=== PATIENT | female | born 1985 | race Caucasian/White ===

== ENCOUNTER 2017-01-14 18:52 | Emergency (ER) | payer OTHER ==
[~2017-01-14] VITALS: Ht 167.6 cm; Wt 82.7 kg
[~2017-01-14 18:52] MED LIST: ALPR-411 PO; BCPILLS PO; BUPR-79 PO; ESCI10TA17 PO; PANT40TA2 PO; ZOLP1TAB PO
[2017-01-14 18:53] VITALS: TEMP 36.7; Ht 167.6 cm; Wt 82.7 kg
[2017-01-14] MEDS ORDERED: HYDROCODONE/HOMATROPINE SYRUP 5MG/1.5MG 5ML UDP PO STA (19:00)
[2017-01-14] MEDS ORDERED: ONDANSETRON INJ 2 MG/ML 2 ML VIAL IV STA (19:00)
[2017-01-14] MEDS ORDERED: ALBUT/IPRATROP 3MG/0.5MG NEB 3 ML VIAL INH STA (19:00)
[2017-01-14] MEDS ORDERED: SODIUM CHLORIDE 0.9% 1000ML 1,000 ML IV STA (19:00)
[2017-01-14] MEDS ORDERED: BENZ100C84 PO (19:16)
[2017-01-14] MEDS ORDERED: PRED10TA PO (19:16)
[2017-01-14] MEDS ORDERED: ESCI1TAB10 PO (19:16)
--- NOTE | 2017-01-14 19:39 | EMERGENCY ROOM VISIT NOTE ---
History Report prepared by Negrito: Tasia Castanon Under the Supervision of: Dr. Michael Goodman M.D. First contact with patient: 18:56 Chief Complaint: SHORTNESS OF BREATH Stated Complaint: COUGH,WHEEZES, SOB History of Present Illness The patient is a 31 year old female who presents to the Emergency Room with complaints of a constant dry cough beginning 8 days ago. The patient reports having a fever of 99.5 about 5 days ago which resolved, feeling body aches, vomiting (from coughing), and fatigue. She also complains of nasal congestion, and a sore throat. She has tried using an inhaler but did not feel any relief. She denies having diarrhea or a history of pneumonia. The patient was diagnosed with a viral URI last week and was prescribed Tessalon Perles and Prednisone. She did not take her Prednisone today. Source of History: patient Onset: 8 days ago Quality: other (cough) Timing: constant Associated Symptoms: + fatigue, + sorethroat, + vomiting, No diarrhea Note: The patient also complains of body aches. Review of Systems See HPI for pertinent positives & negatives. A total of 10 systems reviewed and were otherwise negative. Past Medical & Surgical Medical Problems: (1) Acetaminophen toxicity (2) Anxiety (3) Asthma (4) Depression (5) History of intentional overdose Surgical Problems: (1) No significant past surgical history Family History Diabetes mellitus FHx: cancer FHx: heart disease Hypertension Kidney disease Kidney stones Stroke Social History Smoking Status: Current Some Day Smoker Alcohol Use: occasionally Drug Use: none Marital Status: single Housing Status: lives with significant other Occupation Status: employed Current/Historical Medications Scheduled Azithromycin (Zithromax Z-Ignacio), 0 PO UD Control Pills ( Control Pills), 1 TAB PO DAILY Bupropion (Wellbutrin Sr), 150 MG PO DAILY Escitalopram Oxalate (Lexapro), 20 MG PO DAILY Pantoprazole (Pantoprazole Sodium), 40 MG PO DAILY Prednisone (Prednisone), 0 PO UD Scheduled PRN Alprazolam (Xanax), 0.25 MG PO Q12 PRN for Anxiety Benzonatate (Tessalon Perles), 1-2 CAP PO Q4 PRN for Cough Hydrocodone W/ Homatropine (Hycodan 5/1.5MG 5 Ml), 5-10 ML PO Q4H PRN for Cough Zolpidem Tartrate (Ambien Er), 12.5 MG PO HS PRN for Insomnia Allergies Coded Allergies: No Known Allergies (Unverified , 01/14/17) Physical Exam Vital Signs Date Time Temp Pulse Resp B/P Pulse Ox O2 Delivery O2 Flow Rate FiO2 01/14/17 21:37 91 20 131/79 97 01/14/17 20:36 91 20 120/81 98 Room Air 01/14/17 19:35 85 01/14/17 19:25 Room Air 01/14/17 19:25 Room Air 01/14/17 18:53 36.7 99 20 135/73 96 Room Air Physical Exam GENERAL: Patient is in no mild distress. Anxious and occasionally tearful discussing her cough, HEENT: No acute trauma, normocephalic atraumatic, mucous membranes moist, no nasal congestion, no scleral icterus. No throat erythema or exudate. NECK: No stridor, no adenopathy, no meningismus, trachea is midline. LUNGS: Bilateral wheezing with exhalation, equal breath sounds, no crackles or respiratory distress. HEART: Without murmurs gallops or rubs, regular rate and rhythm. ABDOMEN: Soft, nontender, bowel sounds positive, no hernias, no peritonitis. EXTREMITIES: No cyanosis or edema, full range of motion of all the joints without pain or difficulty, no signs for acute trauma. NEUROLOGIC: Oriented x 3, no acute motor or sensory deficits, no focal weakness. SKIN: No rash, no jaundice, no diaphoresis. Medical Decision & Procedures ER Provider Diagnostic Interpretation: X-ray results as stated below per interpretation by me and the radiologist: CHEST 2 VIEWS ROUTINE FINDINGS: The bones soft tissues and hemidiaphragms are normal. The cardiomediastinal silhouette is normal. The lungs are clear. The pulmonary vasculature is normal. IMPRESSION: Negative chest. Electronically signed by: Mihai Gomez M.D. 01/14/2017 8:22 PM Laboratory Results 01/14/17 19:25 Red Blood Count 4.44, Mean Corpuscular Volume 85.6, Mean Corpuscular Hemoglobin 27.0, Mean Corpuscular Hemoglobin Concent 31.6, Mean Platelet Volume 8.8, Neutrophils (%) (Auto) 57.0, Lymphocytes (%) (Auto) 33.2, Monocytes (%) (Auto) 7.9, Eosinophils (%) (Auto) 1.1, Basophils (%) (Auto) 0.3, Neutrophils # (Auto) 8.33, Lymphocytes # (Auto) 4.85, Monocytes # (Auto) 1.15, Eosinophils # (Auto) 0.16, Basophils # (Auto) 0.04 01/14/17 19:25 Test 01/14/17 19:25 01/14/17 19:30 White Blood Count 14.60 K/uL (4.8-10.8) Red Blood Count 4.44 M/uL (4.2-5.4) Hemoglobin 12.0 g/dL (12.0-16.0) Hematocrit 38.0 % (37-47) Mean Corpuscular Volume 85.6 fL (80-100) Mean Corpuscular Hemoglobin 27.0 pg (25-34) Mean Corpuscular Hemoglobin Concent 31.6 g/dl (32-36) Platelet Count 427 K/uL (130-400) Mean Platelet Volume 8.8 fL (7.4-10.4) Neutrophils (%) (Auto) 57.0 % Lymphocytes (%) (Auto) 33.2 % Monocytes (%) (Auto) 7.9 % Eosinophils (%) (Auto) 1.1 % Basophils (%) (Auto) 0.3 % Neutrophils # (Auto) 8.33 K/uL (1.4-6.5) Lymphocytes # (Auto) 4.85 K/uL (1.2-3.4) Monocytes # (Auto) 1.15 K/uL (0.11-0.59) Eosinophils # (Auto) 0.16 K/uL (0-0.5) Basophils # (Auto) 0.04 K/uL (0-0.2) RDW Standard Deviation 41.6 fL (36.4-46.3) RDW Coefficient of Variation 13.3 % (11.5-14.5) Immature Granulocyte % (Auto) 0.5 % Immature Granulocyte # (Auto) 0.07 K/uL (0.00-0.02) Anion Gap 4.0 mmol/L (3-11) Est Creatinine Clear Calc Drug Dose 101.3 ml/min Estimated GFR () 102.2 Estimated GFR (Non- 88.2 BUN/Creatinine Ratio 12.3 (10-20) Calcium Level 8.3 mg/dl (8.5-10.1) Total Bilirubin 0.3 mg/dl (0.2-1) Aspartate Amino Transf (AST/SGOT) 9 U/L (15-37) Alanine Aminotransferase (ALT/SGPT) 19 U/L (12-78) Alkaline Phosphatase 70 U/L (45-117) Total Protein 8.0 gm/dl (6.4-8.2) Albumin 3.7 gm/dl (3.4-5.0) Globulin 4.3 gm/dl (2.5-4.0) Albumin/Globulin Ratio 0.9 (0.9-2) Influenza Type A Antigen Neg for Influ A (NEG) Influenza Type B Antigen Neg for Influ B (NEG) Laboratory results reviewed by me. Medications Administered Medications (Trade) Dose Ordered Sig/Levy Route Start Time Stop Time Status Last Admin Dose Admin Ondansetron HCl 4 mg 4 mg NOW STAT IV 01/14/17 19:00 01/14/17 19:05 DC 01/14/17 19:29 4 MG Sodium Chloride (Nss 1000ml) 1,000 ml @ 999 mls/hr Q1H1M STAT IV 01/14/17 19:00 01/14/17 20:00 DC 01/14/17 19:29 999 MLS/HR Albuterol/ Ipratropium (Duoneb) 3 ml NOW STAT INH 01/14/17 19:00 01/14/17 19:05 DC 01/14/17 19:28 3 ML Hydrocodone Bit/ Homatropine Methylb (Hycodan Syrup) 5 ml NOW STAT PO 01/14/17 19:00 01/14/17 19:05 DC 01/14/17 19:29 5 ML Azithromycin (Zithromax Tab) 500 mg NOW STAT PO 01/14/17 20:31 01/14/17 20:32 DC 01/14/17 20:40 500 MG Hydrocodone Bit/ Homatropine Methylb (Hycodan Elix Homepack 5/1.5MG/ 5ML) 1 homepack UD ONCE PO 01/14/17 21:00 01/14/17 21:01 DC 01/14/17 21:31 1 HOMEPACK ED Course 1858: The patient was evaluated in room B9. A complete history and physical exam was performed. 1899: Ordered Hydrocodone Bit/Homatropine Methylb 5 ml PO, Duoneb 3 ml INH, Sodium Chloride 1,000 ml @ 999 mls/hr IV, Zofran Inj 4 mg IV. 2030: Ordered Zithromax Tab 500 mg PO. 2099: Ordered Hycodan Elix Homepackl 5/1. 5MG/5ML 1 homepack PO. 2104: Reevaluated the patient. Discussed results and discharge instructions: she verbalized understanding and agreement. The patient is ready for discharge. Medical Decision The patient is a 31 year old female who presents to the ED with complaints of coughing. Differential diagnoses considered include bronchitis, pneumonia, exacerbated asthma, hemothorax, CHF, influenza, viral illness, dehydration. There is a mild leukocytosis, this could be consistent with infection or possibly her steroid use. No worrisome anemia. No significant electrolyte abnormality, kidney failure or hepatitis. Chest x-ray does not show pneumonia or mediastinal widening. There was no pneumothorax. Influenza testing is negative. Blood cultures are pending. The patient was given a DuoNeb, she received oral Zithromax, IV saline. She was given Hycodan orally. She received IV Zofran for nausea. The patient feels improved, she is coughing less. I suspect she has an acute bronchitis with an exacerbation of asthma. Given her symptoms for over one week , given the fever and the asthma history, antibiotics are indicated. I will prescribe Zithromax. Hycodan for cough, more frequent albuterol use. Rest and hydration were encouraged. If worsening, she can return. [place] Drug Monitoring Program Search Results: patient reviewed within database, no issues identified Impression Primary Impression: Acute bronchitis Additional Impression: Asthma exacerbation Scribe Attestation The scribe's documentation has been prepared under my direction and personally reviewed by me in its entirety. I confirm that the note above accurately reflects all work, treatment, procedures, and medical decision making performed by me. Departure Information Dispostion Home / Self-Care Prescriptions Azithromycin (ZITHROMAX Z-IGNACIO) 250 Mg Tab 0 PO UD, #1 PKT Prov: Michael Goodman M.D. 01/14/17 Hydrocodone W/ Homatropine (HYCODAN 5/1.5MG 5 ML) 1 Syp Syp 5-10 ML PO Q4H Y for Cough, #120 ML Prov: Michael Goodman M.D. 01/14/17 Referrals No Doctor, Assigned (PCP) Forms HOME CARE DOCUMENTATION FORM, IMPORTANT VISIT INFORMATION Patient Instructions My [facility] Additional Instructions fluids rest continue the prednisone use hycodan 1-2 tsp every 4 hours for cough zithromax daily as directed return if worsening albuterol 2-3 puffs every 4 hours Problem Qualifiers
[2017-01-14 19:58] LABS: BASO % 0.3 %; BASO ABS # 0.04 K/uL (0-0.2); COMPLETE YES; EOS % 1.1 %; IG% 0.5 %; LYMPH % 33.2 %; LYMPH ABS # 4.85 K/uL (1.2-3.4); MEAN CELL VOLUME 85.6 fL (80-100); MEAN CORPUSCULAR HGB CONC 31.6 g/dl (32-36); MEAN PLATELET VOLUME 8.8 fL (7.4-10.4); MONO % 7.9 %; PLATELET COUNT 427 K/uL (130-400); RED BLOOD COUNT 4.44 M/uL (4.2-5.4)
[2017-01-14 20:13] LABS: BUN/CREATININE RATIO 12.3 (10-20); CALCIUM 8.3 mg/dl (8.5-10.1); CREATININE 0.88 mg/dl (0.60-1.20); POTASSIUM 3.3 mmol/L (3.5-5.1)
[2017-01-14 20:15] LABS: ALB/GLOB RATIO 0.9 (0.9-2)
--- NOTE | 2017-01-14 20:24 | DIAGNOSTIC IMAGING REPORT ---
CHEST 2 VIEWS ROUTINE CLINICAL HISTORY: EVALUATE RESPIRATORY DISTRESS. DYSPNEA COMPARISON STUDY: 05/01/2013 FINDINGS: The bones soft tissues and hemidiaphragms are normal. The cardiomediastinal silhouette is normal. The lungs are clear. The pulmonary vasculature is normal. IMPRESSION: Negative chest. Electronically signed by: Mihai Gomez M.D. 01/14/2017 8:22 PM Dictated Date/Time: 01/14/2017 8:22 PM
[2017-01-14] MEDS ORDERED: AZITHROMYCIN 250 MG TAB PO STA (20:31)
[2017-01-14] MEDS ORDERED: HYCODAN 60ML BOTTLE HOMEPACK PO ONE (21:00)
[2017-01-14] MEDS ORDERED: HYDR5SYP11 PO (21:02)
[2017-01-14] MEDS ORDERED: AZITTAB PO (21:02)
[2017-01-14 21:37] VITALS: BP 131/79; PULSE 91; O2SAT 97
== END 2017-01-14 21:39 | disposition home or self-care (01) ==
LOC: C.EDB 18:53
DX: J20.9 Acute bronchitis, unspecified (principal); J45.901 Unspecified asthma with (acute) exacerbation; F41.9 Anxiety disorder, unspecified; F32.9 Major depressive disorder, single episode, unspecified; F17.200 Nicotine dependence, unspecified, uncomplicated; Z79.899 Other long term (current) drug therapy; Z83.3 Family history of diabetes mellitus; Z80.9 Family history of malignant neoplasm, unspecified; Z82.49 Family history of ischemic heart disease and other diseases of the circulatory system; Z84.1 Family history of disorders of kidney and ureter; Z82.3 Family history of stroke

== ENCOUNTER 2017-07-13 10:11 | Emergency (ER) | payer OTHER ==
[~2017-07-13] VITALS: Ht 167.6 cm; Wt 83.0 kg
[~2017-07-13 10:11] MED LIST changes: +BENZ100C84 PO; -ESCI10TA17 PO; +ESCI1TAB10 PO; +PRED10TA PO
[2017-07-13 10:14] VITALS: TEMP 36.7; Ht 167.6 cm; Wt 83.0 kg
[2017-07-13 10:51] LABS: MANUAL MICROSCOPIC REQUIRED? YES; URINE APPEARANCE CLEAR (CLEAR); URINE BILIRUBIN NEG (NEG); URINE COLOR YELLOW; URINE NITRITE NEG (NEG); URINE PH 6.5 (4.5-7.5); URINE SPECIFIC GRAVITY 1.015 (1.000-1.030); UROBILINOGEN NEG (NEG)
--- NOTE | 2017-07-13 10:53 | EMERGENCY ROOM VISIT NOTE ---
History First contact with patient: 10:19 Chief Complaint: FLANK PAIN Stated Complaint: RT FLANK PAIN, UTI SYMPTOMS History of Present Illness The patient is a 31 year old female who presents to the Emergency Room with complaints of dysuria and urinary frequency which began on Wednesday. The patient describes these as "UTI symptoms. The patient states that the pain has been waxing and waning until today. She did work over the weekend, and this morning when she laid down at approximately 8:30 AM, she began experiencing significant right-sided flank pain, which she describes as a dull ache, and nausea. The patient states over the next hour, the pain increased and became very sharp on the right side. She denies any fever, chills, or vomiting. She denies any hematuria. The patient states she is experiencing nausea. Review of Systems A complete 10 point review of systems was reviewed with the patient with pertinent positives and negatives as per history of present illness. All else were negative. Past Medical/Surgical History Medical Problems: (1) Acetaminophen toxicity (2) Anxiety (3) Asthma (4) Depression (5) History of intentional overdose Surgical Problems: (1) No significant past surgical history Family History Diabetes mellitus FHx: cancer FHx: heart disease Hypertension Kidney disease Kidney stones Stroke Social History Smoking Status: Current Some Day Smoker Alcohol Use: occasionally Drug Use: none Marital Status: single Housing Status: lives with significant other Occupation Status: employed Current/Historical Medications Scheduled Control Pills ( Control Pills), 1 TAB PO DAILY Bupropion (Wellbutrin Sr), 150 MG PO DAILY Escitalopram Oxalate (Lexapro), 20 MG PO DAILY Pantoprazole (Pantoprazole Sodium), 40 MG PO DAILY Phenazopyridine HCl (Pyridium), 200 MG PO TID Sulfa/Trimethoprim (Bactrim Ds 800MG/160MG), 1 TAB PO BID Scheduled PRN Alprazolam (Xanax), 0.25 MG PO Q12 PRN for Anxiety Zolpidem Tartrate (Ambien Er), 12.5 MG PO HS PRN for Insomnia Physical Exam Vital Signs Date Time Temp Pulse Resp B/P (MAP) Pulse Ox O2 Delivery O2 Flow Rate FiO2 07/13/17 12:18 100 16 148/103 97 07/13/17 10:14 36.7 100 18 132/88 97 Room Air Physical Exam VITALS: Vitals are noted on the nurse's note and reviewed by myself. Vital signs stable. GENERAL: This is a 31-year-old white female, in no acute distress, nondiaphoretic, well-developed well-nourished. SKIN: The skin was without rashes, erythema, edema, or bruising. There is no tenting of the skin. Capillary reflex less than 2 seconds. HEAD: Normocephalic atraumatic. EARS: External auditory canals clear, tympanic membranes pearly rosales without erythema or effusion bilaterally. EYES: Pupils equal round and reactive to light and accommodation. Conjunctivae without injection, sclerae without icterus. Extraocular movements intact. NOSE: Patent, turbinates without inflammation or discharge. No sinus tenderness. MOUTH: Mucous membranes moist. Tonsils are not enlarged. Pharynx without erythema or exudate. Uvula midline. Airway patent. Tongue does not deviate. NECK: Supple without nuchal rigidity. No lymphadenopathy. No thyromegaly. Cervical spine is nontender. No JVD. HEART: Regular rate and rhythm without murmurs gallops or rubs. LUNGS: Clear to auscultation bilaterally without wheezes, rales or rhonchi. No dullness to percussion. No retractions or accessory muscle use. ABDOMEN: Positive bowel sounds x 4. Normal tympanic percussion. CVA tenderness on the right. There is mild suprapubic tenderness on palpation. Soft, without masses or organomegaly. Amezcua sign negative. No guarding or rebound tenderness. MUSCULOSKELETAL: No muscle atrophy, erythema, or edema noted. Full range of motion without joint tenderness in all extremities. No tenderness to palpation. Normal gait. Strength 5/5 throughout. NEURO: Patient was alert and oriented to person place and time. Normal sensation to light and sharp touch. Deep tendon reflexes 2+ throughout. No focal neurological deficits. Medical Decision & Procedures ER Provider Diagnostic Interpretation: Urinalysis showed 1+ protein, 1+ blood, and trace leuk esterase. 1+ urine bacteria. CBC showed mild leukocytosis of 11,000. No anemia or thrombocytopenia. CMP reveal significant electrolyte, renal, or hepatic abnormalities. U/S Retroperitoneal: RENAL ULTRASOUND HISTORY: right flank pain, dysuria COMPARISON: Abdomen and pelvis CT 05/12/2015. FINDINGS: Right kidney: 10.4 cm. There is an 8 mm cyst within the upper pole, unchanged. No hydronephrosis. Normal corticomedullary differentiation and cortical thickness. Left kidney: 10.6 cm. No hydronephrosis. Normal corticomedullary differentiation and cortical thickness. Bladder: No bladder wall thickening. The bilateral ureteral jets were not identified. IMPRESSION: An 8 mm right upper pole cyst. No hydronephrosis. Electronically signed by: Sahil Sam M.D. 07/13/2017 11:50 AM Dictated Date/Time: 07/13/2017 11:[address] ABD/PELVIS without for stone: CT SCAN OF THE ABDOMEN AND PELVIS WITHOUT CONTRAST CLINICAL HISTORY: Right flank pain hematuria COMPARISON STUDY: 05/12/2015 TECHNIQUE: CT scan of the abdomen and pelvis was performed from the lung bases to the proximal femurs. Images are reviewed in the axial, sagittal, and coronal planes. IV contrast was not administered for this examination. A dose lowering technique was utilized adhering to the principles of ALARA. CT DOSE: 971.80 mGy.cm FINDINGS: Lower chest: There is an enlarging 6.6 mm left lower lobe pulmonary nodule. This nodule measured 4 mm in April 2015. Also evident is subpleural 4.3 mm nodule within the lingula. This nodule was present on the preceding study and is similar in size. Liver: The unenhanced liver is normal in size, contour, and attenuation. There is no intrahepatic biliary ductal dilatation. Gallbladder: Unremarkable. Spleen: Normal in size and attenuation. Pancreas: Unremarkable. Adrenal glands: Unremarkable. Kidneys: No renal, ureteral, or bladder calculi are visualized. Bowel: There are no transition zones indicate bowel obstruction. There is no acute diverticulitis. The appendix appears normal. Peritoneum: There is no intraperitoneal free air or abdominal ascites. Vasculature: The abdominal aorta is normal in course and caliber. Adenopathy: None. Pelvic viscera: The bladder, and pelvic viscera are unremarkable. Skeletal structures: No destructive osseous lesions are seen. IMPRESSION: 1. No evidence of bowel obstruction. No evidence of free air 2. Normal appendix. No evidence of acute diverticulitis 3. No renal, ureteral, or bladder calculi identified. 4. Enlarging indeterminate 6.6 mm solid left lower lobe pulmonary nodule. Electronically signed by: Darrian Christianson M.D. 07/13/2017 12:43 PM Dictated Date/Time: 07/13/2017 12:36 PM Laboratory Results 07/13/17 10:55 Red Blood Count 4.50, Mean Corpuscular Volume 85.3, Mean Corpuscular Hemoglobin 27.6, Mean Corpuscular Hemoglobin Concent 32.3, Mean Platelet Volume 8.9, Neutrophils (%) (Auto) 67.2, Lymphocytes (%) (Auto) 24.7, Monocytes (%) (Auto) 6.3, Eosinophils (%) (Auto) 1.3, Basophils (%) (Auto) 0.3, Neutrophils # (Auto) 7.74, Lymphocytes # (Auto) 2.85, Monocytes # (Auto) 0.73, Eosinophils # (Auto) 0.15, Basophils # (Auto) 0.03 07/13/17 10:55 Test 07/13/17 10:40 07/13/17 10:55 Urine Color YELLOW Urine Appearance CLEAR (CLEAR) Urine pH 6.5 (4.5-7.5) Urine Specific [place] 1.015 (1.000-1.030) Urine Protein 1+ (NEG) Urine Glucose (UA) NEG (NEG) Urine Ketones NEG (NEG) Urine Occult Blood 1+ (NEG) Urine Nitrite NEG (NEG) Urine Bilirubin NEG (NEG) Urine Urobilinogen NEG (NEG) Urine Leukocyte Esterase TRACE (NEG) Urine RBC 0-4 /hpf (0-4) Urine WBC 5-10 /hpf (0-5) Urine Epithelial Cells 0-5 /lpf (0-5) Urine Bacteria 1+ (NEG) White Blood Count 11.52 K/uL (4.8-10.8) Red Blood Count 4.50 M/uL (4.2-5.4) Hemoglobin 12.4 g/dL (12.0-16.0) Hematocrit 38.4 % (37-47) Mean Corpuscular Volume 85.3 fL (80-100) Mean Corpuscular Hemoglobin 27.6 pg (25-34) Mean Corpuscular Hemoglobin Concent 32.3 g/dl (32-36) Platelet Count 380 K/uL (130-400) Mean Platelet Volume 8.9 fL (7.4-10.4) Neutrophils (%) (Auto) 67.2 % Lymphocytes (%) (Auto) 24.7 % Monocytes (%) (Auto) 6.3 % Eosinophils (%) (Auto) 1.3 % Basophils (%) (Auto) 0.3 % Neutrophils # (Auto) 7.74 K/uL (1.4-6.5) Lymphocytes # (Auto) 2.85 K/uL (1.2-3.4) Monocytes # (Auto) 0.73 K/uL (0.11-0.59) Eosinophils # (Auto) 0.15 K/uL (0-0.5) Basophils # (Auto) 0.03 K/uL (0-0.2) RDW Standard Deviation 42.0 fL (36.4-46.3) RDW Coefficient of Variation 13.7 % (11.5-14.5) Immature Granulocyte % (Auto) 0.2 % Immature Granulocyte # (Auto) 0.02 K/uL (0.00-0.02) Anion Gap 7.0 mmol/L (3-11) Est Creatinine Clear Calc Drug Dose 122.3 ml/min Estimated GFR () 128.1 Estimated GFR (Non- 110.5 BUN/Creatinine Ratio 10.9 (10-20) Calcium Level 8.6 mg/dl (8.5-10.1) Total Bilirubin 0.5 mg/dl (0.2-1) Aspartate Amino Transf (AST/SGOT) 15 U/L (15-37) Alanine Aminotransferase (ALT/SGPT) 25 U/L (12-78) Alkaline Phosphatase 76 U/L (45-117) Total Protein 8.5 gm/dl (6.4-8.2) Albumin 4.0 gm/dl (3.4-5.0) Globulin 4.5 gm/dl (2.5-4.0) Albumin/Globulin Ratio 0.9 (0.9-2) Medications Administered Medications (Trade) Dose Ordered Sig/Levy Route Start Time Stop Time Status Last Admin Dose Admin Ketorolac Tromethamine (Toradol Inj) 30 mg NOW STAT IV 07/13/17 10:55 07/13/17 10:56 DC 07/13/17 11:04 30 MG Ondansetron HCl (Zofran Inj) 4 mg NOW STAT IV 07/13/17 10:55 07/13/17 10:56 DC 07/13/17 11:05 4 MG Sodium Chloride 1,000 ml @ 999 mls/hr Q1H1M STAT IV 07/13/17 10:55 07/13/17 11:55 DC 07/13/17 11:04 999 MLS/HR Medical Decision The patient presented today with UTI symptoms which began 5 days ago, followed by right flank pain which began this morning. The initial thoughts were that the patient could have a urinary tract infection with pyelonephritis. Labs, urinalysis, culture, and ultrasound were ordered initially. The patient was given 30 mg Toradol, 1 L normal saline solution, and 4 mg Zofran IV. Her symptoms completely improved after these medications. Ultrasound was obtained and did not show any signs of hydronephrosis. Labs were not significant or obvious for UTI which would be concerning for pyelonephritis. At this time, I did discuss the case with Dr. Ying. I did offer the patient options including conservative management with antibiotics and fluids versus CT scan for stone. Utilizing sure decision making, we did elect to perform the CT scan at this time. Incidentally, CT scan did show enlarging indeterminate 6.6 mm solid left lower lobe pulmonary nodule. The patient states she was aware of the pulmonary nodule , but did not realize it was enlarging since her last follow-up 2 years ago. She states she has an appointment scheduled for August 03, and will discuss this with her PCP. CT scan did not show any signs of stone. I do suspect the patient's symptoms are related to a urinary tract infection. I discussed this with her bedside, and she agrees. The patient will be started on antibiotic and Pyridium. I discussed the use of Tylenol and/or ibuprofen for pain with the patient. She is in agreement with the plan. Discharge instructions reviewed. The patient was discharged home in good condition. Differential diagnosis: UTI, Nephrolithiasis, ureteral stone or obstruction, pyelonephritis, hydronephrosis, malignancy, abscess, and others. Medication Reconcilliation Current Medication List: was personally reviewed by me Blood Pressure Screening Patient's blood pressure: Normal blood pressure Impression Primary Impression: Dysuria Additional Impressions: Right flank pain Pulmonary nodule Departure Information Dispostion Home / Self-Care Condition GOOD Prescriptions Phenazopyridine HCl (Pyridium) 200 Mg Tab 200 MG PO TID for 2 Days, #6 TAB Prov: Meg Mallory, MELVIN 07/13/17 Sulfa/Trimethoprim (Bactrim Ds 800MG/160MG) Tab 1 TAB PO BID for 7 Days, #14 TAB Prov: Meg Mallory PA-C 07/13/17 Referrals No Doctor, Assigned (PCP) Patient Instructions ED Flank Pain Uncertain Cause, ED UTI Cystitis Female, My [facility] Additional Instructions You have been treated in the Emergency Department for a Urinary Tract Infection (UTI). You have been prescribed Bactrim to be taken twice daily for 7 days. This is an antibiotic. All antibiotics have the potential to cause diarrhea. Stop this medication and contact a medical provider if you were to develop any significant adverse side effects including: wheezing, shortness of breath, passing out, vomiting, or a diffuse rash. Always take antibiotics as directed and COMPLETE the ENTIRE course regardless of the improvement of your symptoms. You have been prescribed Pyridium to be taken as prescribed. This medicine will help with the urinary symptoms that you have been experiencing. Be aware that Pyridium may turn your urine a red-orange or brown color. This effect is harmless. Drink plenty of water and stay well hydrated. As discussed, CT scan of your abdomen did show an increase in size of the pulmonary nodule located on the left lung. I do recommend you follow up with your PCP or a advertising sales representative regarding this finding. Follow-up with your PCP in July at your scheduled appointment is appropriate unless you begin experiencing dyspnea, chest pain, or other concerning symptoms. As with any trip to the Emergency Department, you should follow-up with your Primary Care Provider from today's visit. Return to the emergency department if your symptoms persist despite treatment plan outlined above or if the following symptoms occur: increased fevers, chills , low back pain, nausea/vomiting, or blood in your urine. Problem Qualifiers
[2017-07-13 10:54] LABS: REVIEW REQ? NO
[2017-07-13] MEDS ORDERED: ONDANSETRON INJ 2 MG/ML 2 ML VIAL IV STA (10:55)
[2017-07-13] MEDS ORDERED: SODIUM CHLORIDE 0.9% 1000ML 1,000 ML IV STA (10:55)
[2017-07-13] MEDS ORDERED: KETOROLAC TROMETHAMINE 30 MG/ML VIAL IV STA (10:55)
[2017-07-13 11:02] LABS: BASO % 0.3 %; BASO ABS # 0.03 K/uL (0-0.2); COMPLETE YES; EOS % 1.3 %; HEMATOCRIT 38.4 % (37-47); IG% 0.2 %; LYMPH % 24.7 %; LYMPH ABS # 2.85 K/uL (1.2-3.4); MEAN CELL VOLUME 85.3 fL (80-100); MEAN CORPUSCULAR HEMOGLOBIN 27.6 pg (25-34); MEAN CORPUSCULAR HGB CONC 32.3 g/dl (32-36); MEAN PLATELET VOLUME 8.9 fL (7.4-10.4); MONO % 6.3 %; NEUT % 67.2 %; PLATELET COUNT 380 K/uL (130-400); WHITE BLOOD COUNT 11.52 K/uL (4.8-10.8)
[2017-07-13 11:06] LABS: URINE BACTERIA 1+ (NEG); URINE RBC 0-4 /hpf (0-4)
[2017-07-13 11:07] LABS: ZZUR CULT IF INDIC CLEAN CATCH YES
[2017-07-13 11:21] LABS: BUN/CREATININE RATIO 10.9 (10-20); CALCIUM 8.6 mg/dl (8.5-10.1); CREATININE 0.73 mg/dl (0.60-1.20); POTASSIUM 3.7 mmol/L (3.5-5.1)
[2017-07-13 11:24] LABS: ALB/GLOB RATIO 0.9 (0.9-2)
--- NOTE | 2017-07-13 11:51 | DIAGNOSTIC IMAGING REPORT ---
RENAL ULTRASOUND HISTORY: right flank pain, dysuria COMPARISON: Abdomen and pelvis CT 05/12/2015. FINDINGS: Right kidney: 10.4 cm. There is an 8 mm cyst within the upper pole, unchanged. No hydronephrosis. Normal corticomedullary differentiation and cortical thickness. Left kidney: 10.6 cm. No hydronephrosis. Normal corticomedullary differentiation and cortical thickness. Bladder: No bladder wall thickening. The bilateral ureteral jets were not identified. IMPRESSION: An 8 mm right upper pole cyst. No hydronephrosis. Electronically signed by: Sahil Sam M.D. 07/13/2017 11:50 AM Dictated Date/Time: 07/13/2017 11:48 AM
--- NOTE | 2017-07-13 12:44 | DIAGNOSTIC IMAGING REPORT ---
CT SCAN OF THE ABDOMEN AND PELVIS WITHOUT CONTRAST CLINICAL HISTORY: Right flank pain hematuria COMPARISON STUDY: 05/12/2015 TECHNIQUE: CT scan of the abdomen and pelvis was performed from the lung bases to the proximal femurs. Images are reviewed in the axial, sagittal, and coronal planes. IV contrast was not administered for this examination. A dose lowering technique was utilized adhering to the principles of ALARA. CT DOSE: 971.80 mGy.cm FINDINGS: Lower chest: There is an enlarging 6.6 mm left lower lobe pulmonary nodule. This nodule measured 4 mm in April 2015. Also evident is subpleural 4.3 mm nodule within the lingula. This nodule was present on the preceding study and is similar in size. Liver: The unenhanced liver is normal in size, contour, and attenuation. There is no intrahepatic biliary ductal dilatation. Gallbladder: Unremarkable. Spleen: Normal in size and attenuation. Pancreas: Unremarkable. Adrenal glands: Unremarkable. Kidneys: No renal, ureteral, or bladder calculi are visualized. Bowel: There are no transition zones indicate bowel obstruction. There is no acute diverticulitis. The appendix appears normal. Peritoneum: There is no intraperitoneal free air or abdominal ascites. Vasculature: The abdominal aorta is normal in course and caliber. Adenopathy: None. Pelvic viscera: The bladder, and pelvic viscera are unremarkable. Skeletal structures: No destructive osseous lesions are seen. IMPRESSION: 1. No evidence of bowel obstruction. No evidence of free air 2. Normal appendix. No evidence of acute diverticulitis 3. No renal, ureteral, or bladder calculi identified. 4. Enlarging indeterminate 6.6 mm solid left lower lobe pulmonary nodule. Electronically signed by: Darrian Christianson M.D. 07/13/2017 12:43 PM Dictated Date/Time: 07/13/2017 12:36 PM
[2017-07-13] MEDS ORDERED: SULF800T23 PO (13:07)
[2017-07-13] MEDS ORDERED: PHEN-876 PO (13:07)
[2017-07-13 13:19] VITALS: BP 134/81; PULSE 90; O2SAT 100
== END 2017-07-13 13:20 | disposition home or self-care (01) ==
LOC: C.EDB 10:13
DX: R30.0 Dysuria (principal); R10.30 Lower abdominal pain, unspecified; R91.1 Solitary pulmonary nodule; F41.9 Anxiety disorder, unspecified; F32.9 Major depressive disorder, single episode, unspecified; J45.909 Unspecified asthma, uncomplicated; F17.200 Nicotine dependence, unspecified, uncomplicated; Z79.899 Other long term (current) drug therapy; Z83.3 Family history of diabetes mellitus; Z80.9 Family history of malignant neoplasm, unspecified; Z82.49 Family history of ischemic heart disease and other diseases of the circulatory system; Z84.1 Family history of disorders of kidney and ureter; Z82.3 Family history of stroke

== ENCOUNTER → 2017-07-29 | Outpatient (CLI) | payer OTHER ==
[~2017-07-29] MED LIST changes: -BENZ100C84 PO; -PRED10TA PO
[2017-07-29 10:05] LABS: BASO % 0.3 %; BASO ABS # 0.03 K/uL (0-0.2); COMPLETE YES; HEMATOCRIT 37.5 % (37-47); IG% 0.2 %; LYMPH % 22.7 %; LYMPH ABS # 2.07 K/uL (1.2-3.4); MEAN CELL VOLUME 86.6 fL (80-100); MEAN CORPUSCULAR HEMOGLOBIN 27.3 pg (25-34); MEAN CORPUSCULAR HGB CONC 31.5 g/dl (32-36); MEAN PLATELET VOLUME 9.5 fL (7.4-10.4); MONO % 7.6 %; NEUT % 68.2 %; PLATELET COUNT 390 K/uL (130-400); RED BLOOD COUNT 4.33 M/uL (4.2-5.4)
[2017-07-29 10:16] LABS: ESTIMATED AVERAGE GLUCOSE 100 mg/dl; HA1C FLAG Normal (Normal)
[2017-07-29 10:21] LABS: ALT/SGPT 22 U/L (12-78); BLOOD UREA NITROGEN 10 mg/dl (7-18); BUN/CREATININE RATIO 14.5 (10-20); CALCIUM 8.9 mg/dl (8.5-10.1); CARBON DIOXIDE 27 mmol/L (21-32); CHLORIDE 105 mmol/L (98-107); CREATININE 0.67 mg/dl (0.60-1.20); GLUCOSE 79 mg/dl (70-99); MAGNESIUM 2.3 mg/dl (1.8-2.4); POTASSIUM 3.4 mmol/L (3.5-5.1); SODIUM 138 mmol/L (136-145)
[2017-07-29 10:30] LABS: ALKALINE PHOSPHATASE 73 U/L (45-117); AST/SGOT 12 U/L (15-37); PHOSPHORUS 3.6 mg/dl (2.5-4.9)
== END | disposition home or self-care (01) ==
LOC: C.LAB 07:48
PROVIDERS: ATTEND Internal Medicine
DX: E55.9 Vitamin D deficiency, unspecified (principal); K21.9 Gastro-esophageal reflux disease without esophagitis; R53.83 Other fatigue; Z79.899 Other long term (current) drug therapy; Z13.1 Encounter for screening for diabetes mellitus